=== PATIENT | male | born 1995 | race Caucasian/White ===

== ENCOUNTER 2019-01-10 15:05 | Emergency (ER) | payer BC ==
[2019-01-10 15:20] VITALS: TEMP 98.3; O2SAT 100
--- NOTE | 2019-01-10 15:46 | C.PDOC ---
History Of Present Illness NEW ONSET L FLANK/GROIN PAIN SINCE 1100. REFERRED BY PMD. GIVEN TYLENOL INLETTER BUT PS VOMITED THE PILLS. +HEMATURIA FROM TEST IN PMD OFFICE. +NV EXAM MOD DIST NONTOXIC HEENT MMM ABD NEG NO FLANK TEND Time Seen by Provider: 01/10/19 15:30 Chief Complaint (Nursing): Male Genitourinary History Per: Patient History/Exam Limitations: no limitations Onset/Duration Of Symptoms: Days Current Symptoms Are (Timing): Still Present Severity: Moderate Past Medical History Reviewed: Historical Data, Nursing Documentation, Vital Signs Vital Signs: Last Vital Signs Temp 98.3 F 01/10/19 15:13 Pulse 94 H 01/10/19 15:13 Resp 20 01/10/19 15:13 BP 159/106 H 01/10/19 15:13 Pulse Ox 100 01/10/19 15:13 - Medical History PMH: No Chronic Diseases Surgical History: No Surg Hx Family History: States: No Known Family Hx - Social History Hx Alcohol Use: Yes Hx Substance Use: No - Immunization History Hx Tetanus Toxoid Vaccination: No Hx Influenza Vaccination: Yes Hx Pneumococcal Vaccination: No Review Of Systems Except As Marked, All Systems Reviewed And Found Negative. Constitutional: Negative for: Fever, Chills Gastrointestinal: Positive for: Nausea, Vomiting, Other (left flank/groin pain) Genitourinary: Positive for: Hematuria. Negative for: Dysuria Physical Exam - Physical Exam Appears: Non-toxic, Other (moderate distress) Skin: Normal Color, Warm, Dry Head: Atraumatic, Normacephalic Eye(s): bilateral: Normal Inspection Oral Mucosa: Moist Cardiovascular: Rhythm Regular Respiratory: Other (NARD) Gastrointestinal/Abdominal: Normal Exam, Soft, No Tenderness, No Guarding, No Rebound Back: Other (no flank tenderness) Neurological/Psych: Oriented x3, Normal Speech ED Course And Treatment - Laboratory Results Result Diagrams: 01/10/19 16:22 01/10/19 16:22 O2 Sat by Pulse Oximetry: 100 (RA) Pulse Ox Interpretation: Normal Reevaluation Time: 17:09 Reassessment Condition: Improved - Physician Consult Information Time Consulting Physician Contacted: 17:09 Physician Contacted: Yasmin Cam Outcome Of Conversation: AWARE OF ER FINDINGS, WILL FU OFFICE Medical Decision Making Medical Decision Making: Plan: --Labs --UA --CT- Abd & Pelv. --Flomax PO --Toradol IV Disposition Counseled Patient/Family Regarding: Studies Performed, Diagnosis, Need For Followup, Rx Given - Disposition Referrals: Yasmin Cam MD [Staff Provider] - Disposition: HOME/ ROUTINE Disposition Time: 17:30 Condition: IMPROVED Prescriptions: Acetaminophen [Tylenol Extra Strength] 2 tab PO Q6 #30 tablet Ibuprofen [Motrin] 600 mg PO Q6 #30 tab Ondansetron ODT [Zofran ODT] 4 mg PO TID PRN #12 odt PRN Reason: Nausea/Vomiting Tamsulosin [Flomax] 0.4 mg PO DAILY #14 cap Instructions: Kidney Stones (DC) Forms: [employer] ([place]), Work Excuse - Clinical Impression Clinical Impression: Nephrolithiasis - Scribe Statement The provider has reviewed the documentation as recorded by the Scribe Sarah Gonzalez Provider Attestation: All medical record entries made by the Scribe were at my direction and personally dictated by me. I have reviewed the chart and agree that the record accurately reflects my personal performance of the history, physical exam, medical decision making, and the department course for this patient. I have also personally directed, reviewed, and agree with the discharge instructions and disposition.
[2019-01-10] MEDS ORDERED: Sodium Chloride 0.9% 1,000 ML IV STA (15:47)
[2019-01-10] MEDS ORDERED: Lidocaine 129 MG in Sodium Chloride 0.9% 100 ML IV STA (15:47)
[2019-01-10] MEDS ORDERED: Sodium Chloride 0.9% 1,000 ML ONE (15:54)
[2019-01-10 16:28] LABS: BASO % 0.2 % (0.0-2.0); EOS % 0.1 % (0.0-4.0); HEMOGLOBIN 15.7 g/dL (12.0-18.0); LYMPH # 1.1 K/uL (1.0-4.3); LYMPH % 6.7 % (20.0-40.0); MEAN CELL VOLUME 85.9 fL (80.0-94.0); MEAN CORPUSCULAR HEMOGLOBIN 28.2 pg (27.0-31.0); MEAN CORPUSCULAR HGB CONC 32.8 g/dL (33.0-37.0); MEAN PLATELET VOLUME 9.5 fL (7.2-11.7); MONO # 0.7 K/uL (0.0-0.8); MONO % 4.6 % (0.0-10.0); NEUT # 13.9 K/uL (1.8-7.0); NEUT % 88.4 % (50.0-75.0); PLATELET COUNT 219 K/uL (130-400); RBC 5.57 Mil/uL (4.40-5.90); RED CELL DISTRIBUTION WIDTH 13.3 % (11.5-14.5); WHITE BLOOD COUNT 15.7 K/uL (4.8-10.8)
[2019-01-10 16:33] LABS: SQUAMOUS EPITHIAL 1 /hpf (0-5); URINE AMORPHOUS SEDIMENT FEW /ul (<OCC); URINE BACTERIA RARE (<OCC); URINE BILIRUBIN NEGATIVE (NEGATIVE); URINE BLOOD 2+ (NEGATIVE); URINE CLARITY Turbid (Clear); URINE COLOR Amber (YELLOW); URINE GLUCOSE (UA) NORMAL (Normal); URINE LEUKOCYTE ESTERASE NEG Leu/uL (Negative); URINE PROTEIN 2+ mg/dL (NEGATIVE); URINE UROBILINOGEN NORMAL mg/dL (0.2-1.0)
[2019-01-10 16:41] LABS: BLOOD UREA NITROGEN 10 mg/dL (9-20); CALCIUM 9.5 mg/dl (8.6-10.4); GFR NON-AFRICAN AMERICAN > 60
--- NOTE | 2019-01-10 16:49 | CT ---
PROCEDURE: CT Abdomen and Pelvis without Oral or IV contrast. HISTORY: L FLANK PAIN COMPARISON: None available. TECHNIQUE: Contiguous axial images of the abdomen and pelvis. No oral or IV contrast administered. Coronal and Sagittal reformats generated and reviewed. Radiation dose: Total exam DLP = 608.08 mGy-cm. This CT exam was performed using one or more of the following dose reduction techniques: Automated exposure control, adjustment of the mA and/or kV according to patient size, and/or use of iterative reconstruction technique. FINDINGS: There is limited evaluation of the solid organs without the administration of IV contrast. LOWER THORAX: No visible consolidation, pleural effusion, or pneumothorax. LIVER: Unremarkable unenhanced appearance. GALLBLADDER AND BILE DUCTS: Unremarkable unenhanced appearance. PANCREAS: Unremarkable unenhanced appearance. SPLEEN: Unremarkable unenhanced appearance. ADRENALS: Unremarkable unenhanced appearance. KIDNEYS AND URETERS: 6 x 3 mm calculus at the left UVJ with proximal hydroureteronephrosis. No right-sided hydronephrosis or obstructing renal calculus. BLADDER: Under distended urinary bladder. REPRODUCTIVE: The prostate gland measures approximately 3.2 x 4.5 cm. APPENDIX: The appendix appears within normal limits of caliber. No secondary signs of acute appendicitis. BOWEL: The stomach is nondistended. Lack of oral contrast limits evaluation for bowel pathology. The bowel loops appear within normal limits of caliber without evidence of intestinal obstruction. PERITONEUM: No significant free fluid. No definite free air. LYMPH NODES: No bulky lymphadenopathy identified. VASCULATURE: No aortic aneurysm. No significant atherosclerotic calcifications of the aorta identified. BONES: No acute osseous abnormality is detected. OTHER FINDINGS: None. IMPRESSION: 6 x 3 mm calculus at the left UVJ with proximal hydroureteronephrosis.
[2019-01-10 17:02] VITALS: BP 146/87; PULSE 88; RESP 11
[2019-01-10 17:45] LABS: BANDS 2 % (0-2); LYMPHOCYTE 10 % (20-40); MICROCYTOSIS SLIGHT; MONOCYTE 3 % (0-10); NEUTROPHIL 85 % (50-75); PLATELET ESTIMATE NORMAL (NORMAL); TOTAL CELLS COUNTED 100
[2019-01-10 17:46] LABS: LARGE PLATELETS PRESENT; SPHEROCYTES SLIGHT; TEARDROP CELLS SLIGHT
== END 2019-01-10 17:36 | disposition home or self-care (01) ==
LOC: C.ER 15:05
DX: N13.2 Hydronephrosis with renal and ureteral calculous obstruction (principal)
CPT/HCPCS: 74176; 80048; 81001; 85025; 96374; 99284; J1885; J2001; J7030